=== PATIENT | female | born 1980 | race Caucasian/White ===

== ENCOUNTER 2017-02-04 18:00 | Emergency (ER) | payer OTHER ==
[~2017-02-04] VITALS: Ht 170.2 cm; Wt 88.2 kg
[2017-02-04 19:17] VITALS: BP 105/78
== END 2017-02-04 19:17 | disposition home or self-care (01) ==
LOC: ED 18:00
DX: G89.18 Other acute postprocedural pain (principal); Z98.890 Other specified postprocedural states; Z87.19 Personal history of other diseases of the digestive system

== ENCOUNTER 2018-03-22 14:09 | Emergency (ER) | payer OTHER ==
[~2018-03-22] VITALS: Ht 167.6 cm; Wt 95.2 kg
[2018-03-22 14:58] VITALS: BP 145/94
== END 2018-03-22 14:58 | disposition home or self-care (01) ==
LOC: ED 14:09
DX: S29.012A Strain of muscle and tendon of back wall of thorax, initial encounter (principal); F17.210 Nicotine dependence, cigarettes, uncomplicated; W50.0XXA Accidental hit or strike by another person, initial encounter; Y93.89 Activity, other specified; Y92.89 Other specified places as the place of occurrence of the external cause; Y99.8 Other external cause status

== ENCOUNTER 2018-07-29 06:35 | Emergency (ER) | payer OTHER ==
[~2018-07-29] VITALS: Ht 167.6 cm; Wt 98.9 kg
[2018-07-29 06:40] VITALS: Ht 167.6 cm; Wt 98.9 kg
[2018-07-29 07:13] VITALS: BP 141/97
== END 2018-07-29 07:13 | disposition home or self-care (01) ==
LOC: ED 06:35
DX: J03.90 Acute tonsillitis, unspecified (principal); J32.9 Chronic sinusitis, unspecified; F17.210 Nicotine dependence, cigarettes, uncomplicated; F12.90 Cannabis use, unspecified, uncomplicated; E66.01 Morbid (severe) obesity due to excess calories; Z71.6 Tobacco abuse counseling; Z68.35 Body mass index [BMI] 35.0-35.9, adult; Z98.51 Tubal ligation status
CPT/HCPCS: 99406

== ENCOUNTER 2018-09-13 19:05 | Emergency (ER) | payer OTHER ==
[~2018-09-13] VITALS: Ht 167.6 cm; Wt 98.0 kg
[2018-09-13 19:19] VITALS: Ht 167.6 cm; Wt 98.0 kg
[2018-09-13 21:16] VITALS: BP 144/72
== END 2018-09-13 21:16 | disposition home or self-care (01) ==
LOC: ED 19:05
DX: J20.9 Acute bronchitis, unspecified (principal); Z98.890 Other specified postprocedural states
CPT/HCPCS: J7613; Q0092